=== PATIENT | female | born 1950 | race Caucasian/White ===

== ENCOUNTER 2017-10-24 13:37 | Inpatient (IN) | payer MEDICARE, MEDICAID, SELFPAY ==
[2017-10-24] VITALS (13 sets, daily range): BP systolic 92–133; BP diastolic 56–106; PULSE 40–121; RESP 16–20; TEMP 36.3–37.1; O2SAT 94–98; BMI 29.6; BMI 26.6
--- NOTE | 2017-10-24 13:53 | EKG12_ITS ---
Test Reason : CP Blood Pressure : / mmHG Vent. Rate : 116 BPM Atrial Rate : 117 BPM P-R Int : 000 ms QRS Dur : 114 ms QT Int : 348 ms P-R-T Axes : 000 -02 182 degrees QTc Int : 483 ms Atrial fibrillation Marked ST abnormality, possible inferolateral subendocardial injury Abnormal ECG Reconfirmed by CYNTHIA HARPER, ANABELA ([id number]), film editor KEYLA SANTAMARIA ([id number]) on 10/27/2017 1:50:54 PM Referred By: Confirmed By:ANABELA MARIE MD
--- NOTE | 2017-10-24 14:05 | RAD_ITS ---
STUDY: X-RAY CHEST REASON FOR EXAM: Female, 67 years old. Chest pain. TECHNIQUE: Single AP portable view of the chest. COMPARISON: None. FINDINGS: EKG electrodes are seen. The lungs are clear and expanded. There is no demonstrated pleural abnormality. There is moderate cardiac enlargement. Normal mediastinum and kenan. Normal visualized pulmonary arteries. There is atherosclerotic calcification of the aortic arch with tortuosity. There is demineralization of the osseous structures. Deformity of the proximal right humerus most likely secondary to a healed fracture. There is no demonstrated abnormality of the visualized soft tissue structures of the upper abdomen. RAD/Chest 1 View (Portable) IMPRESSION: Cardiomegaly. The lungs are clear. Electronically Signed: Fredi Diaz MD at 14:25 EDT Tel [phone], Service support ,
--- NOTE | 2017-10-24 14:19 | ED.VISSUMM ---
- ER Visit Summary Date of Service: 10/24/17 Chief Complaint: Brought to ER to evaluate chest pain History of Present Illness: The patient is a 67 F who has a history of heart problems and is cognitively impaired was brought to the emergency department because of chest pain that started at 1100. Reportedly there was radiation to both shoulders and shortness of breath. She did have nausea with vomiting ?1. She is not a good performance secondary to her cognitive impairment. Physical Examination: Vital signs reveal a slightly elevated blood pressure 133/106 and an elevated heart rate of 120. Head is atraumatic normocephalic. Pupils are equal round reactive. Extraocular muscles are intact. TMs are pearly white with landmarks noted. Nares patent with no drainage. Posterior pharynx without erythema or exudate. Uvula is midline. There is no dysphonia or dysphasia. Trachea is midline. There is no stridor with auscultation of the neck. Heart is irregularly irregular and rapid. Lungs reveal no wheezes rales or rhonchi. Abdomen is soft nontender with no palpable cell mass abdominal bruit. She does have mild edema of both right and left lower extremity. Distal pulses were appreciated. She is alert. There is no obvious motor or sensory deficit. Test Results: EKG was obtained and reveals atrial fibrillation rate of [address]-T wave changes. This may represent ischemia versus rate dependency versus chronic. Will attempt to get old EKG from outside facility and her teacher assistant Dr. Garrison was paged. CBC is unremarkable. BMP is unremarkable. Troponin is indeterminate at 0.14. Emergency Department Course and Treatment: To evaluate this elderly woman's chest pain EKG, chest x-ray appropriate blood work was obtained. Since she has allergy to aspirin she did not receive any aspirin in the department. Recent will receive metoprolol for her rapid heart rate. Treatment Plan: [place] with teacher assistant on-call for Dr. Garrison. Patient has a history of chronic diastolic congestive heart failure, hypertrophic obstructive cardiomyopathy with a gradient of 23 which is unremarkable., Mitral valve prolapse, essential hypertension and dementia. Her last stress test was 2015 and reportedly unremarkable. The cardiac echo was in 2014. Disposition: PCU for further evaluation and testing Impression: 1. Anterior chest pain 2. Elevated troponin 3. MRDD and dementia 4. History of hypertrophic obstructive cardiomyopathy 5. History of chronic diastolic congestive heart failure 6. History of benign essential hypertension 7. Atrial fibrillation with RVR This note was generated with [employer] dictation software. It may contain incorrect words, spelling, and punctuation that were not noted in review of the chart prior to signing ED Disposition - Plan for ED Patient: Chief Complaint: General Illness Referrals: [facility],Out of [Primary Care Provider] -
--- NOTE | 2017-10-24 14:22 | ED.DCSUM_ITS ---
- ER Visit Summary Date of Service: 10/24/17 Chief Complaint: Brought to ER to evaluate chest pain History of Present Illness: The patient is a 67 F who has a history of heart problems and is cognitively impaired was brought to the emergency department because of chest pain that started at 1100. Reportedly there was radiation to both shoulders and shortness of breath. She did have nausea with vomiting ?1. She is not a good performance secondary to her cognitive impairment. Physical Examination: Vital signs reveal a slightly elevated blood pressure 133/ 106 and an elevated heart rate of 120. Head is atraumatic normocephalic. Pupils are equal round reactive. Extraocular muscles are intact. TMs are pearly white with landmarks noted. Nares patent with no drainage. Posterior pharynx without erythema or exudate. Uvula is midline. There is no dysphonia or dysphasia. Trachea is midline. There is no stridor with auscultation of the neck. Heart is irregularly irregular and rapid. Lungs reveal no wheezes rales or rhonchi. Abdomen is soft nontender with no palpable cell mass abdominal bruit. She does have mild edema of both right and left lower extremity. Distal pulses were appreciated. She is alert. There is no obvious motor or sensory deficit. Test Results: EKG was obtained and reveals atrial fibrillation rate of [address]-T wave changes. This may represent ischemia versus rate dependency versus chronic. Will attempt to get old EKG from outside facility and her copper miner Dr. Garrison was paged. CBC is unremarkable. BMP is unremarkable. Troponin is indeterminate at 0.14. Emergency Department Course and Treatment: To evaluate this elderly woman's chest pain EKG, chest x-ray appropriate blood work was obtained. Since she has allergy to aspirin she did not receive any aspirin in the department. Recent will receive metoprolol for her rapid heart rate. Treatment Plan: [place] with copper miner on-call for Dr. Garrison. Patient has a history of chronic diastolic congestive heart failure, hypertrophic obstructive cardiomyopathy with a gradient of 23 which is unremarkable., Mitral valve prolapse, essential hypertension and dementia. Her last stress test was 2015 and reportedly unremarkable. The cardiac echo was in 2014. Disposition: PCU for further evaluation and testing Impression: 1. Anterior chest pain 2. Elevated troponin 3. MRDD and dementia 4. History of hypertrophic obstructive cardiomyopathy 5. History of chronic diastolic congestive heart failure 6. History of benign essential hypertension 7. Atrial fibrillation with RVR This note was generated with [employer] dictation software. It may contain incorrect words, spelling, and punctuation that were not noted in review of the chart prior to signing ED Disposition - Plan for ED Patient: Chief Complaint: General Illness Referrals: [facility],Out of [Primary Care Provider] -
[2017-10-24 14:24] LABS: Absolute Lymphocyte Count 1.61 X10^3/ul (0.83-4.51); Absolute Neutrophil Count 6.4 X10^3/uL (2.0-7.7); Basophil# 0.04 X10^3/uL; Basophil% 0.5 % (0-1); Eosinophil# 0.04 X10^3/uL; Eosinophils% 0.5 % (0-5); Hematocrit 42.1 % (37-47); Lymphocyte # 1.61 X10^3/ul (4.0); Lymphocyte % 18.7 % (19-41); Mean Corp Hgb Conc 33.3 g/gl (32-36); Mean Corpuscular Volume 93.1 fL (81-99); Mean Platelet Vol. 9.3 fl (6.2-12.0); Monocyte# 0.52 X10^3/uL; Neutrophil # 6.39 X10^3/uL (2.7-7.7); Neutrophil % 74.2 % (47-70); Platelet Count 275 K/mm3 (150-450); RBC Distribution Width CV 12.5 % (11.6-14.6); RBC Distribution Width SD 42.4 fl (35.1-43.9); Red Blood Count 4.52 M/mm3 (4.2-5.4); White Blood Count 8.6 K/mm3 (4.4-11.0)
[2017-10-24 14:25] LABS: POSITIVE COUNT NO; POSITIVE DIFFERENTIAL NO; POSITIVE MORPHOLOGY NO
[2017-10-24 14:40] LABS: Anion Gap 10 (5-15); BUN 30 mg/dL (7-18); BUN/Creat Ratio 30.9 RATIO (10-20); Calcium,Total 9.4 mg/dL (8.5-10.1); Chloride 106 mmol/L (98-107); Creatinine, Serum 0.97 mg/dL (0.55-1.02); EST Glomerular Filtration Rate 60 mL/min (>60); Est Glom Filt Rate - Afr Amer 73 mL/min (>60); Estimated Creatinine Clearance 55.56 ml/min; Glucose 115 mg/dL (74-106); Potassium 4.6 mmol/L (3.5-5.1); Sodium Level 140 mmol/L (136-145)
[2017-10-24] MEDS: Metoprolol Tartrate 5 MG/5 ML Vial IV (15:30)
--- NOTE | 2017-10-24 16:39 | PCM.HP.STD ---
Problem List (1) Chest pain Status: Acute (2) Afib Status: Acute (3) HOCM (hypertrophic obstructive cardiomyopathy) Status: Chronic (4) Heart failure with preserved ejection fraction Status: Chronic (5) MVP (mitral valve prolapse) Status: Chronic (6) HTN (hypertension) Status: Chronic Qualifiers: Hypertension type: essential hypertension Qualified Code(s): I10 - Essential (primary) hypertension (7) Dementia in Alzheimer's disease Status: Chronic (8) Hypersomnolence Status: Acute History of Present Illness Date of Admission: 10/24/17 Chief Complaint: chest pain. vomiting. The patient is a 67 year old F who states that she has not been feeling well for days with nausea and today had vomiting. Patient also complaining of chest pain which she states is been for days. The patient's caregiver to whom she lives with, has been in the room and states that a lot of these symptoms patient is complaining about were unknown to her but patient is not most reliable historian, according to the caregiver. Patient went to an urgent care and had an irregular heartbeat and advised to go to the hospital. Normally the patient's care is in [facility] but they did advise patient go to the nearest emergency room which was [place]. So here patient was noted to be in atrial fibrillation on EKG did receive 1 dose of metoprolol. Did have a troponin that was 0.14. Patient is being admitted for further chest pain evaluation well as atrial fibrillation. Patient's caregiver, has a daughter who is a nurse, and the daughter has told the caregiver that the patient has had intermittent atrial fibrillation. Review of records from the patient's claim adjuster, Dr. Dain Garrison, has no mention of atrial fibrillation on it. Patient's last visit was from August 03, 2017. [] Past Medical History Past Medical History (Chronic Problems): Chronic Problems HOCM (hypertrophic obstructive cardiomyopathy) (Chronic) Heart failure with preserved ejection fraction (Chronic) MVP (mitral valve prolapse) (Chronic) HTN (hypertension) (Chronic) Dementia in Alzheimer's disease (Chronic) Allergies aspirin Allergy (Verified 10/24/17 13:43) Rash ibuprofen Adverse Reaction (Verified 10/24/17 13:43) Other STOMACH BLEEDING Home Medications: Ambulatory Orders Medication Instructions Recorded Acetaminophen [Tylenol] 325 mg PO Q4H PRN PRN 10/24/17 Alendronate Sodium [Fosamax] 70 mg PO Q7D@0700 10/24/17 Cholecalciferol (Vitamin D3) 1,000 unit PO DAILY 10/24/17 [Vitamin D3] Cholestyramine/Aspartame 4 gm PO DAILY 10/24/17 [Cholestyramine Light Packet] Donepezil HCl [Aricept] 5 mg PO QHS 10/24/17 Lovastatin [Altoprev] 20 mg PO QHS 10/24/17 Metoprolol Succinate [Toprol Xl] 50 mg PO BID 10/24/17 Ondansetron HCl [Zofran] 4 mg PO Q8H PRN PRN 10/24/17 Spironolactone 25 mg PO DAILY 10/24/17 Verapamil HCl [Verapamil ER] 240 mg PO DAILY 10/24/17 Psychiatric History: No pertinent psych hx Lives: Friends Smoking Status: Former smoker Tobacco Use: Non-smoker Alcohol: None Drugs: None - *Family History Maternal History Items: - - Patient unaware and caregiver does not know. Review of Systems Constitutional: Denies: Anorexia, Chills, Fever Eyes: Denies: Blurred vision, Double vision HEENT: Denies: Difficulty Hearing, Dysphasia, Ear Pain, Eye Pain Cardiovascular: Reports: Chest Pain, Edema Respiratory: Reports: Shortness of Breath. Denies: Cough Gastrointestinal: Reports: Nausea, Vomiting. Denies: Abdominal Pain Genitourinary: Denies: Dysuria Musculoskeletal: Denies: Joint Pain, Joint Tenderness Skin: Denies: Dryness, Jaundice Neurological: Denies: Balance problems, Blurred vision, Double vision, Change in Speech Psychiatric: Denies: Anxiety, Depression Endocrine: Reports: Change in Body Habitus - Has gained roughly 25 pounds in the past year. Denies: Heat/ Cold Intolerance Hematologic/ Lymphatic: Denies: Easy Bruising, Easy Bleeding, Hx of blood clot VTE Information - Inpt Only VTE Present on Admission: No VTE Pharm Prophylaxis ordered?: Yes Patient Problems: Active and Suspected Problems Chest pain (Acute) Afib (Acute) Hypersomnolence (Acute) - Physical Exam General: Alert, Cooperative, No apparent distress HEENT: Atraumatic, Normocephalic Oral: Moist Mucosa, No Gingival or Mucosal Lesions/ Ulcerations Neck: No Nodes, Thyroid Normal Size and Texture Lungs: Clear to auscultation, Normal air movement, No rhonchi, No wheeze Cardiovascular: Normal S1, Normal S2, Irregular Rate Abdomen: Bowel Sounds Present, Soft, Non Tender, Non-Distended, No Hepato-splenomegaly Extremities: Edema - Trace Skin: No rashes, No breakdown Musculoskeletal: No Tenderness to Palpation of Joints or Extremities, No Muscle Wasting Neurological: Neuro grossly intact, Motor Exam 5/5 strength throughout Psych/Mental Status: Normal Affect, Appropriate, Agitated, Anxious Vital Signs Temp Pulse Resp BP Pulse Ox 36.4 C L 102 H 17 127/90 H 95 10/24/17 13:39 10/24/17 15:41 10/24/17 15:41 10/24/17 15:41 10/24/17 15:41 Oxygen Delivery Method Room Air Weight: 64.3 kg Body Mass Index (BMI) 29.6 Laboratory Tests Past 24 Hrs 10/24/17 10/24/17 14:15 14:15 WBC 8.6 RBC 4.52 Hgb 14.0 Hct 42.1 MCV 93.1 MCH 31.0 MCHC 33.3 RDW 12.5 RDW Differential 42.4 Plt Count 275 MPV 9.3 Immature Gran % (Auto) 0.100 Neut % (Auto) 74.2 H Lymph % (Auto) 18.7 L [place] % (Auto) 6.0 Eos % (Auto) 0.5 Baso % (Auto) 0.5 Absolute Neuts (auto) 6.4 Absolute Lymphs (auto) 1.61 Total Counted Not Reportable Sodium 140 Potassium 4.6 Chloride 106 Carbon Dioxide 24.0 Anion Gap 10 BUN 30 H Creatinine 0.97 Estim Creat Clear Calc 55.56 Est GFR (MDRD) Af Amer 73 Est GFR (MDRD) Non-Af 60 BUN/Creatinine Ratio 30.9 H Glucose 115 H Calcium 9.4 Troponin I 0.14 H EKG reviewed and showed atrial fibrillation. Previous EKGs from March 29, 2016 showed normal sinus rhythm at that time. Did show diffuse ST depressions throughout. Assessment/Plan Active and Suspected Problems Chest pain (Acute) Afib (Acute) Hypersomnolence (Acute) 1. Chest pain Atypical Cycle troponins Check Lexiscan stress test Consult cardiology, Dr. Mas notified. 2. Atrial fibrillation May be a new diagnosis but is unclear but nothing formally documented in Dr. Garrison's notes. [id number] score is 4 Will start patient on Lovenox And based on patient's echocardiogram patient will either go with the novel anticoagulants versus Coumadin. Patient has no bleeding problems and despite the patient's underlying mental impairments she is not a fall risk and has a good performance status 3. Hypertrophic obstructive cardiomyopathy Check echocardiogram Follow-up with Dr. Garrison as outpatient. 4. DVT prophylaxis: Patient is anticoagulated 5. CODE STATUS: Despite the patient living with a caregiver, the caregiver is not the guardian and therefore no formal CODE STATUS is readily available. Therefore patient has full CODE STATUS at this time. Code Visit Inpatient E&M: 98299 Init Hosp L3
--- NOTE | 2017-10-24 16:50 | HP.PCM_ITS ---
Problem List (1) Chest pain Status: Acute (2) Afib Status: Acute (3) HOCM (hypertrophic obstructive cardiomyopathy) Status: Chronic (4) Heart failure with preserved ejection fraction Status: Chronic (5) MVP (mitral valve prolapse) Status: Chronic (6) HTN (hypertension) Status: Chronic Qualifiers: Hypertension type: essential hypertension Qualified Code(s): I10 - Essential (primary) hypertension (7) Dementia in Alzheimer's disease Status: Chronic (8) Hypersomnolence Status: Acute History of Present Illness Date of Admission: 10/24/17 Chief Complaint: chest pain. vomiting. The patient is a 67 year old F who states that she has not been feeling well for days with nausea and today had vomiting. Patient also complaining of chest pain which she states is been for days. The patient's caregiver to whom she lives with, has been in the room and states that a lot of these symptoms patient is complaining about were unknown to her but patient is not most reliable historian, according to the caregiver. Patient went to an urgent care and had an irregular heartbeat and advised to go to the hospital. Normally the patient's care is in [facility] but they did advise patient go to the nearest emergency room which was [place]. So here patient was noted to be in atrial fibrillation on EKG did receive 1 dose of metoprolol. Did have a troponin that was 0.14. Patient is being admitted for further chest pain evaluation well as atrial fibrillation. Patient's caregiver, has a daughter who is a nurse, and the daughter has told the caregiver that the patient has had intermittent atrial fibrillation. Review of records from the patient's agriculture department chair, Dr. Dain Garrison, has no mention of atrial fibrillation on it. Patient's last visit was from August 03, 2017. [] Past Medical History Past Medical History (Chronic Problems): Chronic Problems HOCM (hypertrophic obstructive cardiomyopathy) (Chronic) Heart failure with preserved ejection fraction (Chronic) MVP (mitral valve prolapse) (Chronic) HTN (hypertension) (Chronic) Dementia in Alzheimer's disease (Chronic) Allergies aspirin Allergy (Verified 10/24/17 13:43) Rash ibuprofen Adverse Reaction (Verified 10/24/17 13:43) Other STOMACH BLEEDING Home Medications: Ambulatory Orders Medication Instructions Recorded Acetaminophen [Tylenol] 325 mg PO Q4H PRN PRN 10/24/17 Alendronate Sodium [Fosamax] 70 mg PO Q7D@0700 10/24/17 Cholecalciferol (Vitamin D3) 1,000 unit PO DAILY 10/24/17 [Vitamin D3] Cholestyramine/Aspartame 4 gm PO DAILY 10/24/17 [Cholestyramine Light Packet] Donepezil HCl [Aricept] 5 mg PO QHS 10/24/17 Lovastatin [Altoprev] 20 mg PO QHS 10/24/17 Metoprolol Succinate [Toprol Xl] 50 mg PO BID 10/24/17 Ondansetron HCl [Zofran] 4 mg PO Q8H PRN PRN 10/24/17 Spironolactone 25 mg PO DAILY 10/24/17 Verapamil HCl [Verapamil ER] 240 mg PO DAILY 10/24/17 Psychiatric History: No pertinent psych hx Lives: Friends Smoking Status: Former smoker Tobacco Use: Non-smoker Alcohol: None Drugs: None - *Family History Maternal History Items: - - Patient unaware and caregiver does not know. Review of Systems Constitutional: Denies: Anorexia, Chills, Fever Eyes: Denies: Blurred vision, Double vision HEENT: Denies: Difficulty Hearing, Dysphasia, Ear Pain, Eye Pain Cardiovascular: Reports: Chest Pain, Edema Respiratory: Reports: Shortness of Breath. Denies: Cough Gastrointestinal: Reports: Nausea, Vomiting. Denies: Abdominal Pain Genitourinary: Denies: Dysuria Musculoskeletal: Denies: Joint Pain, Joint Tenderness Skin: Denies: Dryness, Jaundice Neurological: Denies: Balance problems, Blurred vision, Double vision, Change in Speech Psychiatric: Denies: Anxiety, Depression Endocrine: Reports: Change in Body Habitus - Has gained roughly 25 pounds in the past year. Denies: Heat/ Cold Intolerance Hematologic/ Lymphatic: Denies: Easy Bruising, Easy Bleeding, Hx of blood clot VTE Information - Inpt Only VTE Present on Admission: No VTE Pharm Prophylaxis ordered?: Yes Patient Problems: Active and Suspected Problems Chest pain (Acute) Afib (Acute) Hypersomnolence (Acute) - Physical Exam General: Alert, Cooperative, No apparent distress HEENT: Atraumatic, Normocephalic Oral: Moist Mucosa, No Gingival or Mucosal Lesions/ Ulcerations Neck: No Nodes, Thyroid Normal Size and Texture Lungs: Clear to auscultation, Normal air movement, No rhonchi, No wheeze Cardiovascular: Normal S1, Normal S2, Irregular Rate Abdomen: Bowel Sounds Present, Soft, Non Tender, Non-Distended, No Hepato- splenomegaly Extremities: Edema - Trace Skin: No rashes, No breakdown Musculoskeletal: No Tenderness to Palpation of Joints or Extremities, No Muscle Wasting Neurological: Neuro grossly intact, Motor Exam 5/5 strength throughout Psych/Mental Status: Normal Affect, Appropriate, Agitated, Anxious Vital Signs Temp Pulse Resp BP Pulse Ox 36.4 C L 102 H 17 127/90 H 95 10/24/17 13:39 10/24/17 15:41 10/24/17 15:41 10/24/17 15:41 10/24/17 15:41 Oxygen Delivery Method Room Air Weight: 64.3 kg Body Mass Index (BMI) 29.6 Laboratory Tests Past 24 Hrs 10/24/17 10/24/17 14:15 14:15 WBC 8.6 RBC 4.52 Hgb 14.0 Hct 42.1 MCV 93.1 MCH 31.0 MCHC 33.3 RDW 12.5 RDW Differential 42.4 Plt Count 275 MPV 9.3 Immature Gran % (Auto) 0.100 Neut % (Auto) 74.2 H Lymph % (Auto) 18.7 L [place] % (Auto) 6.0 Eos % (Auto) 0.5 Baso % (Auto) 0.5 Absolute Neuts (auto) 6.4 Absolute Lymphs (auto) 1.61 Total Counted Not Reportable Sodium 140 Potassium 4.6 Chloride 106 Carbon Dioxide 24.0 Anion Gap 10 BUN 30 H Creatinine 0.97 Estim Creat Clear Calc 55.56 Est GFR (MDRD) Af Amer 73 Est GFR (MDRD) Non-Af 60 BUN/Creatinine Ratio 30.9 H Glucose 115 H Calcium 9.4 Troponin I 0.14 H EKG reviewed and showed atrial fibrillation. Previous EKGs from March 29, 2016 showed normal sinus rhythm at that time. Did show diffuse ST depressions throughout. Assessment/Plan Active and Suspected Problems Chest pain (Acute) Afib (Acute) Hypersomnolence (Acute) 1. Chest pain * Atypical * Cycle troponins * Check Lexiscan stress test * Consult cardiology, Dr. Mas notified. 2. Atrial fibrillation * May be a new diagnosis but is unclear but nothing formally documented in Dr. Garrison's notes. * [id number] score is 4 * Will start patient on Lovenox * And based on patient's echocardiogram patient will either go with the novel anticoagulants versus Coumadin. * Patient has no bleeding problems and despite the patient's underlying mental impairments she is not a fall risk and has a good performance status 3. Hypertrophic obstructive cardiomyopathy * Check echocardiogram * Follow-up with Dr. Garrison as outpatient. 4. DVT prophylaxis: Patient is anticoagulated 5. CODE STATUS: Despite the patient living with a caregiver, the caregiver is not the guardian and therefore no formal CODE STATUS is readily available. Therefore patient has full CODE STATUS at this time. Code Visit Inpatient E&M: 06604 Init Hosp L3
[2017-10-24] MEDS: Enoxaparin 60 MG/0.6 ML Syringe SC (17:50)
[2017-10-24] MEDS: Acetaminophen 325 MG Tablet PO ×2 (17:50→22:08)
--- NOTE | 2017-10-24 18:01 | CON.PCM_ITS ---
Reason for Consult Date of Consultation: 10/24/17 Reason for Consultation: Abnormal cardiac enzymes and abnormal EKG. History of Present Illness: The patient is a 67 year old F who states that she has not been feeling well for days with nausea and today had vomiting. Patient also complaining of chest pain which she states is been for days. The patient's caregiver to whom she lives with, has been in the room and states that a lot of these symptoms patient is complaining about were unknown to her but patient is not most reliable historian, according to the caregiver. Patient went to an urgent care and had an irregular heartbeat and advised to go to the hospital. So here patient was noted to be in atrial fibrillation on EKG did receive 1 dose of metoprolol. Cardiac enzymes were also obtained which were noted to be abnormal. Her major complaint at this time appears to be a headache but denies any chest discomfort she has had no dizziness or diaphoresis no near syncope or syncope she thinks her feet and legs have been swollen. She usually follows with a welding lead burner Dr. Garrison. She apparently has a history of hypertrophic cardiomyopathy with mitral valve prolapse. Past Medical History Allergies/Adverse Reactions: Allergies aspirin Allergy (Verified 10/24/17 13:43) Rash ibuprofen Adverse Reaction (Verified 10/24/17 13:43) Other STOMACH BLEEDING Home Medications: Ambulatory Orders Medication Instructions Recorded Acetaminophen [Tylenol] 325 mg PO Q4H PRN PRN 10/24/17 Alendronate Sodium [Fosamax] 70 mg PO Q7D@0700 10/24/17 Cholecalciferol (Vitamin D3) 1,000 unit PO DAILY 10/24/17 [Vitamin D3] Cholestyramine/Aspartame 4 gm PO DAILY 10/24/17 [Cholestyramine Light Packet] Donepezil HCl [Aricept] 5 mg PO QHS 10/24/17 Lovastatin [Altoprev] 20 mg PO QHS 10/24/17 Metoprolol Succinate [Toprol Xl] 50 mg PO BID 10/24/17 Ondansetron HCl [Zofran] 4 mg PO Q8H PRN PRN 10/24/17 Spironolactone 25 mg PO DAILY 10/24/17 Verapamil HCl [Verapamil ER] 240 mg PO DAILY 10/24/17 Past Medical History (Chronic Problems): Chronic Problems HOCM (hypertrophic obstructive cardiomyopathy) (Chronic) Heart failure with preserved ejection fraction (Chronic) MVP (mitral valve prolapse) (Chronic) HTN (hypertension) (Chronic) Dementia in Alzheimer's disease (Chronic) Psychiatric History: No pertinent psych hx - *Family History Maternal History Items: - - Patient unaware and caregiver does not know. Lives: Friends Smoking Status: Former smoker Tobacco Use: Non-smoker Alcohol: None Drugs: None Review of Systems - Review of Systems General: Denies: Fever, Night Sweats, Fatigue Cardiovascular: Reports: Chest Discomfort, Palpitations. Denies: Shortness of Breath, Orthopnea, PND, Peripheral Edema, Lightheadedness, Dizziness, Near Syncope, Syncope Respiratory: Denies: Cough, Sputum Production, Hemoptysis Gastrointestinal: Denies: Hematemesis, Hematochezia, Melena Genitourinary: Denies: Dysuria, Hematuria Skin: Denies: Rash Subjectve: Pleasant lady in no apparent distress Objective: Vital Signs Temp Pulse Resp BP Pulse Ox 97.4 F L 99 18 97/56 L 94 10/24/17 17:13 10/24/17 17:13 10/24/17 17:13 10/24/17 17:13 10/24/17 17:13 Oxygen Delivery Method Room Air Weight: 140 lb 10.479 oz Body Mass Index (BMI) 26.6 Intake and Output for Last 24 Hours 10/22/17 10/23/17 10/24/17 23:59 23:59 23:59 Intake Total 240 / 240 Balance 240 / 240 General: Awake, Alert, Oriented x 3 HEENT: PERRL, EOMI, Sclera Non Icteric Neck: Supple, Good ROM, No Lymph Node Enlargement Lungs: Clear to auscultation Cardiovascular: Irregular Rhythm, Normal S1, Normal S2, No Rubs, No Gallops Murmur Murmur: Grade 2/6, Early Systolic, LLSB Vascular: No Carotid Bruits, Normal Femoral Pulses, Normal Radial Pulses, Normal Dorsalis Pedal Pulse, Normal Posterior Tibial Pulses Abdomen: Bowel Sounds Present, Soft, Non Tender, No HSM, No Organomegaly Extremities: No Cyanosis, No Clubbing, No edema Skin: No Rashes Neurological: No Focal Motor or Sensory Deficit Rhythm: EKG: Atrial fibrillation with a rate of [address] depression noted Assessment/Plan 1. Atrial fibrillation with a rapid ventricular response rate. She apparently has a history of hypertrophic cardiomyopathy and now presents with atrial fibrillation and EKG changes. My recommendation at this time would be for her to resume her beta-kieran as well as her verapamil for rate control. She is at high risk for embolic phenomenon and needs to be put on an anticoagulation regimen. An echocardiogram should also be performed to reassess her left ventricular function as well as the atrial size. After she is stabilized she will be discharged to go back to her primary welding lead burner. 2. hypertrophic cardiomyopathy. She appears to have evidence of hypertrophic cardiomyopathy with EKG changes as well as with physical exam. I would recommend that we repeat echocardiogram to characterize the above and compared with any previous that she may have. Rate control is paramount and making sure that she does not decompensate. 3. Abnormal cardiac enzymes. . The above could be secondary to demand ischemia from the atrial fibrillation as well as her hypertrophic cardiomyopathy. I would recommend that we obtain a pharmacologic stress test in a.m. depending on her cardiac enzyme patent. Further recommendations will then be made. I have explained the above to her as best as I can and depending on the results further recommendations will be made. Thank you for allowing me to participate in the care of your patient. Please don't hesitate to call if any issues arise
[2017-10-24] MEDS: Metoprolol(XL)Succ 50 MG Tablet PO (18:05)
[2017-10-24] MEDS: Atorvastatin Calcium 10 MG Tablet 5 MG PO (21:03)
[2017-10-24] MEDS: Donepezil HCl 5 MG Tablet PO (21:03)
--- NOTE | 2017-10-24 21:49 | EKG12_ITS ---
Test Reason : RHYTHM CHECK Blood Pressure : / mmHG Vent. Rate : 056 BPM Atrial Rate : 202 BPM P-R Int : 000 ms QRS Dur : 118 ms QT Int : 462 ms P-R-T Axes : 000 012 189 degrees QTc Int : 445 ms Atrial fibrillation Left ventricular hypertrophy with QRS widening Marked ST abnormality, possible inferior subendocardial injury Marked ST abnormality, possible anterolateral subendocardial injury Abnormal ECG Confirmed by CYNTHIA HARPER, ANABELA ([id number]), purchasing expeditor KEYLA SANTAMARIA ([id number] on 10/27/2017 2:04:42 PM Referred By: NU Confirmed By:ANABELA MARIE MD
[2017-10-24] MEDS: Ondansetron ODT 4 MG Tablet PO (22:15)
[2017-10-25] VITALS (22 sets, daily range): BP systolic 92–140; BP diastolic 40–117; PULSE 64–142; RESP 12–20; TEMP 36.2–36.9; O2SAT 92–99
[2017-10-25 05:28] LABS: Absolute Lymphocyte Count 1.81 X10^3/ul (0.83-4.51); Absolute Neutrophil Count 3.9 X10^3/uL (2.0-7.7); Basophil# 0.04 X10^3/uL; Basophil% 0.6 % (0-1); Eosinophil# 0.16 X10^3/uL; Eosinophils% 2.5 % (0-5); Hematocrit 39.7 % (37-47); Hemoglobin 13.1 g/dl (12.0-15.0); Lymphocyte # 1.81 X10^3/ul (4.0); Lymphocyte % 28.3 % (19-41); Mean Corpuscular Volume 93.9 fL (81-99); Mean Platelet Vol. 9.3 fl (6.2-12.0); Monocyte% 7.8 % (0-10); Neutrophil # 3.87 X10^3/uL (2.7-7.7); Neutrophil % 60.6 % (47-70); Platelet Count 225 K/mm3 (150-450); RBC Distribution Width CV 12.8 % (11.6-14.6); RBC Distribution Width SD 43.8 fl (35.1-43.9); Red Blood Count 4.23 M/mm3 (4.2-5.4); White Blood Count 6.4 K/mm3 (4.4-11.0)
[2017-10-25 05:29] LABS: POSITIVE COUNT NO; POSITIVE DIFFERENTIAL NO; POSITIVE MORPHOLOGY NO
[2017-10-25 05:32] LABS: Prothrombin Time (Protime)PT. 13.5 SECONDS (11.7-14.9)
[2017-10-25 05:33] LABS: Partial Thromboplast Time 39.1 Seconds (24.1-36.2)
[2017-10-25] MEDS: 0.9% NaCl Peripheral Flush Adult/Peds IV ×2 (05:44→11:04)
[2017-10-25] MEDS: Ondansetron 4 MG/2 ML Vial IV (05:44)
[2017-10-25 05:47] LABS: Anion Gap 8 (5-15); BUN 27 mg/dL (7-18); BUN/Creat Ratio 31.1 RATIO (10-20); Calcium,Total 8.5 mg/dL (8.5-10.1); Chloride 105 mmol/L (98-107); Cholesterol 150 mg/dL (200); Creatinine, Serum 0.87 mg/dL (0.55-1.02); EST Glomerular Filtration Rate 69 mL/min (>60); Est Glom Filt Rate - Afr Amer 83 mL/min (>60); Estimated Creatinine Clearance 46.05 ml/min; Glucose 93 mg/dL (74-106); High Density Lipoprotein 57 mg/dL; Potassium 4.2 mmol/L (3.5-5.1); Sodium Level 140 mmol/L (136-145); Triglycerides 101 mg/dL; Very Low Density Lipoprotein 20 mg/dL (5-40)
--- NOTE | 2017-10-25 05:55 | EKG12_ITS ---
Test Reason : AM EKG Blood Pressure : / mmHG Vent. Rate : 081 BPM Atrial Rate : 277 BPM P-R Int : 000 ms QRS Dur : 114 ms QT Int : 420 ms P-R-T Axes : 000 012 206 degrees QTc Int : 487 ms Atrial fibrillation Septal infarct , age undetermined Marked ST abnormality, possible inferior subendocardial injury Abnormal ECG Confirmed by CYNTHIA HARPER, ANABELA ([id number]), managing editor KEYLA SANTAMARIA ([id number]) on 10/27/2017 2:04:13 PM Referred By: NU Confirmed By:ANABELA MARIE MD
--- NOTE | 2017-10-25 09:31 | PCM.PN.CARD ---
Subjectve: The patient was seen and evaluated. Was having chest discomfort nausea and vomiting during the stress test as well as EKG changes with bradycardia arrhythmias. Based on this it was decided to proceed with a left heart catheterization Objective: Vital Signs Temp Pulse Resp BP Pulse Ox 97.9 F 87 14 99/68 97 10/25/17 05:51 10/25/17 05:51 10/25/17 05:51 10/25/17 05:51 10/25/17 05:51 Oxygen Flow Rate (L/min) 2 Oxygen Delivery Method Room Air Weight: 140 lb 10.479 oz Body Mass Index (BMI) 26.6 Intake and Output for Last 24 Hours 10/23/17 10/24/17 10/25/17 23:59 23:59 23:59 Intake Total 420 / 420 Balance 420 / 420 General: Awake, Alert, Oriented x 3 HEENT: PERRL, EOMI, Sclera Non Icteric Neck: Supple, Good ROM, No Lymph Node Enlargement Lungs: Clear to auscultation Cardiovascular: Regular Rhythm, Normal S1, Normal S2, No Murmurs, No Rubs, No Gallops Vascular: No Carotid Bruits, Normal Femoral Pulses, Normal Radial Pulses, Normal Dorsalis Pedal Pulse, Normal Posterior Tibial Pulses Abdomen: Bowel Sounds Present, Soft, Non Tender, No HSM, No Organomegaly Extremities: No Cyanosis, No Clubbing, No edema Neurological: No Focal Motor or Sensory Deficit 10/24/17 17:35: Troponin I 0.16 H 10/24/17 20:32: Troponin I 0.19 H 10/25/17 05:10: Sodium 140, Potassium 4.2, Chloride 105, Carbon Dioxide 27.0, Anion Gap 8, BUN 27 H, Creatinine 0.87, Est GFR (MDRD) Af Amer 83, Est GFR (MDRD) Non-Af 69, BUN/Creatinine Ratio 31.1 H, Glucose 93, Calcium 8.5, Triglycerides 101, Cholesterol 150, LDL Cholesterol 73, VLDL Cholesterol 20, HDL Cholesterol 57 10/25/17 05:10: WBC 6.4, RBC 4.23, Hgb 13.1, Hct 39.7, MCV 93.9, MCH 31.0, MCHC 33.0, RDW 12.8, RDW Differential 43.8, Plt Count 225, MPV 9.3, Immature Gran % (Auto) 0.200, Neut % (Auto) 60.6, Lymph % (Auto) 28.3, [place] % (Auto) 7.8, Eos % (Auto) 2.5, Baso % (Auto) 0.6, Absolute Neuts (auto) 3.9, Total Counted Not Reportable 10/25/17 05:10: PT 13.5, INR 1.0, APTT 39.1 H Rhythm: EKG: ECHO: Stress Test: Cardiac Cath: PCI: CT Surgery: Holter monitor: EPS: PPM: CXR: Chest CT Scan: Medical Necessity - Tobacco Use Smoking Status: Former smoker Tobacco Use: Non-smoker Assessment/Plan 1. Atrial fibrillation with a rapid ventricular response rate. She apparently has a history of hypertrophic cardiomyopathy and now presents with atrial fibrillation and EKG changes. My recommendation at this time would be for her to resume her beta-kieran as well as her verapamil for rate control. She is at high risk for embolic phenomenon and needs to be put on an anticoagulation regimen. An echocardiogram should also be performed to reassess her left ventricular function as well as the atrial size. 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 2. hypertrophic cardiomyopathy. She appears to have evidence of hypertrophic cardiomyopathy with EKG changes as well as with physical exam. I would recommend that we repeat echocardiogram to characterize the above and compared with any previous that she may have. Rate control is paramount and making sure that she does not decompensate. 3. Abnormal cardiac enzymes. Due to her abnormal cardiac enzymes and EKG she underwent a cardiac catheterization this morning which demonstrated essentially normal coronary arteries with evidence of hypertrophic cardiomyopathy. The plan will be to treat her with rate limiting medications. Thank you for allowing me to participate in the care of your patient. Please don't hesitate to call if any issues arise
--- NOTE | 2017-10-25 09:34 | PN.CARD_ITS ---
Subjectve: The patient was seen and evaluated. Was having chest discomfort nausea and vomiting during the stress test as well as EKG changes with bradycardia arrhythmias. Based on this it was decided to proceed with a left heart catheterization Objective: Vital Signs Temp Pulse Resp BP Pulse Ox 97.9 F 87 14 99/68 97 10/25/17 05:51 10/25/17 05:51 10/25/17 05:51 10/25/17 05:51 10/25/17 05:51 Oxygen Flow Rate (L/min) 2 Oxygen Delivery Method Room Air Weight: 140 lb 10.479 oz Body Mass Index (BMI) 26.6 Intake and Output for Last 24 Hours 10/23/17 10/24/17 10/25/17 23:59 23:59 23:59 Intake Total 420 / 420 Balance 420 / 420 General: Awake, Alert, Oriented x 3 HEENT: PERRL, EOMI, Sclera Non Icteric Neck: Supple, Good ROM, No Lymph Node Enlargement Lungs: Clear to auscultation Cardiovascular: Regular Rhythm, Normal S1, Normal S2, No Murmurs, No Rubs, No Gallops Vascular: No Carotid Bruits, Normal Femoral Pulses, Normal Radial Pulses, Normal Dorsalis Pedal Pulse, Normal Posterior Tibial Pulses Abdomen: Bowel Sounds Present, Soft, Non Tender, No HSM, No Organomegaly Extremities: No Cyanosis, No Clubbing, No edema Neurological: No Focal Motor or Sensory Deficit 10/24/17 17:35: Troponin I 0.16 H 10/24/17 20:32: Troponin I 0.19 H 10/25/17 05:10: Sodium 140, Potassium 4.2, Chloride 105, Carbon Dioxide 27.0, Anion Gap 8, BUN 27 H, Creatinine 0.87, Est GFR (MDRD) Af Amer 83, Est GFR (MDRD ) Non-Af 69, BUN/Creatinine Ratio 31.1 H, Glucose 93, Calcium 8.5, Triglycerides 101, Cholesterol 150, LDL Cholesterol 73, VLDL Cholesterol 20, HDL Cholesterol 57 10/25/17 05:10: WBC 6.4, RBC 4.23, Hgb 13.1, Hct 39.7, MCV 93.9, MCH 31.0, MCHC 33.0, RDW 12.8, RDW Differential 43.8, Plt Count 225, MPV 9.3, Immature Gran % ( Auto) 0.200, Neut % (Auto) 60.6, Lymph % (Auto) 28.3, [place] % (Auto) 7.8, Eos % ( Auto) 2.5, Baso % (Auto) 0.6, Absolute Neuts (auto) 3.9, Total Counted Not Reportable 10/25/17 05:10: PT 13.5, INR 1.0, APTT 39.1 H Rhythm: EKG: ECHO: Stress Test: Cardiac Cath: PCI: CT Surgery: Holter monitor: EPS: PPM: CXR: Chest CT Scan: Medical Necessity - Tobacco Use Smoking Status: Former smoker Tobacco Use: Non-smoker Assessment/Plan 1. Atrial fibrillation with a rapid ventricular response rate. She apparently has a history of hypertrophic cardiomyopathy and now presents with atrial fibrillation and EKG changes. My recommendation at this time would be for her to resume her beta-kieran as well as her verapamil for rate control. She is at high risk for embolic phenomenon and needs to be put on an anticoagulation regimen. An echocardiogram should also be performed to reassess her left ventricular function as well as the atrial size. 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 2. hypertrophic cardiomyopathy. She appears to have evidence of hypertrophic cardiomyopathy with EKG changes as well as with physical exam. I would recommend that we repeat echocardiogram to characterize the above and compared with any previous that she may have. Rate control is paramount and making sure that she does not decompensate. 3. Abnormal cardiac enzymes. Due to her abnormal cardiac enzymes and EKG she underwent a cardiac catheterization this morning which demonstrated essentially normal coronary arteries with evidence of hypertrophic cardiomyopathy. The plan will be to treat her with rate limiting medications. Thank you for allowing me to participate in the care of your patient. Please don't hesitate to call if any issues arise
--- NOTE | 2017-10-25 10:39 | CT_ITS ---
STUDY: CT BRAIN WITHOUT CONTRAST REASON FOR EXAM: Female, 67 years old. Headaches following heart catheterization. RADIATION DOSAGE (If Supplied By Facility): CTDIvol = ( 44.99 ) mGy, DLP = ( 796.11 ) mGycm TECHNIQUE: Transaxial CT imaging of the brain was performed without administration of intravenous contrast material. Individualized dose optimization techniques were used for this CT. COMPARISON: None. FINDINGS: Normal soft tissue structures. Normal calvarium. Normal size ventricles and extra-axial spaces for the patient's age. Normal white matter tracts of the cerebral hemispheres. Normal basal ganglia and thalami. Normal brainstem. Normal cerebellum. There is no intracranial hemorrhage. There are no findings of an acute ischemic infarction. Normal visualized paranasal sinuses. CT/Brain/Head without Contrast IMPRESSION: Normal unenhanced CT scan of the brain. Electronically Signed: Fredi Diaz MD at 11:31 EDT Tel [phone], Service support ,
--- NOTE | 2017-10-25 10:55 | CL.D_ITS ---
Patient Name: LELA CARBAJAL Study Date: 10/25/2017 Performing: Pio Mas MD Ht: 61 inches 155 cm : 1950 Wt: 141.3 lbs 64 kg Age: 67 Gender: female BSA: 1.63 PROCEDURE(S) PERFORMED [id number]/LV CLINICAL PROFILE AND INDICATIONS Indications: ACS <= 24 hrs Heart Failure: None Stress/Imaging Stress Test w/SPECT MPI: Yes Result: IndeterminantStress Test with SPECT MPI: Inde terminant Angina Classification Anginal Classification w/in 2 Weeks: CCS III CAD Presentations: Unstable angina. CONCLUSIONS Cardiomyopathy: Hypertrophic RECOMMENDATIONS Medical therapy DESCRIPTION OF PROCEDURE The patient arrived to the procedure lab. The risks and benefits of the procedure as well as a full d escription of our services here and current unavailability of surgical backup were fully explained to the patient and/or their significant other prior to the catheterization. The Timeout was completed, verifying the correct patient and procedure. The patient's procedural site was prepped and draped in the usual fashion. Local anesthetic was given subcutaneously to right groin region with Lidocaine 2%. Using a modified Seldinger technique, arterial access was obtained via the right femoral artery, a 5 Fr sheath was inserted. Left Coronary Artery selective angiography was performed in multiple views u sing a 5 Fr. JL4 catheter. Right Coronary Artery selective angiography was then performed in multiple views using a 5 Fr. 3DRC (Marin) catheter. Left Ventriculography was performed in VELAZQUEZ projection using a 5 Fr. Pigtail catheter. LV to AO pullback pressures were then recorded.Contrast was injected through the sheath and the Right Iliac and Femoral artery were assessed for possible closure device.T he arterial sheath was pulled and a Mynx closure device was deployed for hemostasis CORONARY ANGIOGRAPHY DOMINANCE: Right Dominant LEFT HEART ASSESSMENT Left Ventricular Ejection Fraction: by LV Gram 80 % Normal LV wall motion Cardiomyopathy: Hypertrophic LEFT MAIN: Angiographically normal LEFT ANTERIOR DECENDING ARTERY: Angiographically normal CIRCUMFLEX ARTERY: Angiographically normal RIGHT CORONARY ARTERY: Angiographically normal COMPLICATIONS No Complications PROCEDURE MEDICATIONS Versed 1 mg IV Fentanyl 25 mcg IV Oxygen: 2 L/min via nasal cannula Brilinta 180 mg PO @ 10/25/2017 08:53:45 Zofran 4 mg IV 10/25/2017 08:53:26 SUMMARY OF HEMODYNAMIC DATA Time AIR REST ECG 08:54:28 AO 107/76 (93) SA 09:08:38 LV 114/8, 16 09:16:15 LV 121/5, 11 09:16:22 LV 114/8, 17 09:17:21 LVp 143/10, 16 09:18:16 LVp 141/9, 14 09:18:21 LVp 98/0, 0 09:18:34 AOp 122/80 (95) 09:18:39 Signed By Pio Mas MD On 10/25/2017 10:54:34 Pio Mas MD
[2017-10-25] MEDS: proMETHazine 25 MG/ML Syringe 12.5 MG IV (11:04)
--- NOTE | 2017-10-25 11:46 | CASEMGMT ---
SW met with patient's caregiver, Rukhsana Pollard. Patient is MRDD and has a legal guardian, Agnes Carpenter. Agnes is Rukhsana's daughter. Patient was at one time and her took great care of her. However, he . They got patient and apartment to see if she could live on her own, but it did not work out so she moved in with Rukhsana. Patient goes to the [employer] for her work. They said she is pretty functional except Rukhsana does manage her meds, she does her laundry, and makes her meals. They anticipate returning home with no needs. CM and SW available should this change. SW did ask if they had the guardianship papers and they did not. Brittnee LAROSE MSW
[2017-10-25] MEDS: Metoprolol Tartrate 5 MG/5 ML Vial IV (12:16)
--- NOTE | 2017-10-25 13:02 | STRESSREP ---
Stress Test Report Pharmacologic myocardial perfusion stress test. 67-year-old lady with a history of hypertrophic cardiomyopathy abnormal EKG and abnormal cardiac enzymes. Stress protocol: Resting EKG demonstrates atrial fibrillation with a rate of 83 bpm lateral and inferior ST depression suggestive of ischemia. 0.4 mg of regadenoson was infused per usual protocol followed by rapid intravenous saline flush injection. Approximately 2 and three-quarter minutes post infusion patient developed significant bradycardia and a period of asystole requiring a brief episode of chest compressions. Patient was also noted to be rather nauseated. She maintained atrial fibrillation throughout the rest of the recording she continued to have ST depressions in the inferolateral leads of approximately 1.5-2.5 mm. She regained her blood pressure and heart rate and was monitored for approximately 30 minutes. The maximum heart rate was 129 bpm is 85% of maximum predicted heart rate for atrial fibrillation. No obvious clinical angina was noted. The resting blood pressure was 100/72 with a final blood pressure 102/64 mmHg. Myocardial perfusion protocol. 11.5 mCi of technetium 99m sestamibi was injected at rest. 0.4 mg of regadenoson was infused per usual protocol peak infusion 34.1 mCi of technetium 99m sestamibi was injected stress images were obtained stress and rest images were reconstructed and compared in the short axis vertical long and horizontal long axis. Gated images were also obtained pre- Perfusion SPECT analysis: Review of the stress images demonstrate normal uptake of tracer noted in all areas of the myocardium. The resting images similarly demonstrate normal uptake of tracer noted in all areas myocardium. A small portion of the apex appeared to have reduced perfusion. No obvious ischemia is noted and no previous infarct is present. Gated SPECT analysis: The gated ejection fraction is 66%. Conclusion: Normal pharmacologic myocardial perfusion stress test.
--- NOTE | 2017-10-25 13:08 | STRESSREP_ITS ---
Stress Test Report Pharmacologic myocardial perfusion stress test. 67-year-old lady with a history of hypertrophic cardiomyopathy abnormal EKG and abnormal cardiac enzymes. Stress protocol: Resting EKG demonstrates atrial fibrillation with a rate of 83 bpm lateral and inferior ST depression suggestive of ischemia. 0.4 mg of regadenoson was infused per usual protocol followed by rapid intravenous saline flush injection. Approximately 2 and three-quarter minutes post infusion patient developed significant bradycardia and a period of asystole requiring a brief episode of chest compressions. Patient was also noted to be rather nauseated. She maintained atrial fibrillation throughout the rest of the recording she continued to have ST depressions in the inferolateral leads of approximately 1.5 -2.5 mm. She regained her blood pressure and heart rate and was monitored for approximately 30 minutes. The maximum heart rate was 129 bpm is 85% of maximum predicted heart rate for atrial fibrillation. No obvious clinical angina was noted. The resting blood pressure was 100/72 with a final blood pressure 102/ 64 mmHg. Myocardial perfusion protocol. 11.5 mCi of technetium 99m sestamibi was injected at rest. 0.4 mg of regadenoson was infused per usual protocol peak infusion 34.1 mCi of technetium 99m sestamibi was injected stress images were obtained stress and rest images were reconstructed and compared in the short axis vertical long and horizontal long axis. Gated images were also obtained pre- Perfusion SPECT analysis: Review of the stress images demonstrate normal uptake of tracer noted in all areas of the myocardium. The resting images similarly demonstrate normal uptake of tracer noted in all areas myocardium. A small portion of the apex appeared to have reduced perfusion. No obvious ischemia is noted and no previous infarct is present. Gated SPECT analysis: The gated ejection fraction is 66%. Conclusion: Normal pharmacologic myocardial perfusion stress test.
--- NOTE | 2017-10-25 14:53 | PCM.PROGNOTE ---
Patient Problems: Active and Suspected Problems Chest pain (Acute) Afib (Acute) Hypersomnolence (Acute) Subjective: Pt without further chest pain after admission. She had mildly elevated troponin, a syncopal episode and EKG changes during the stress test, so she was taken for heart cath which was negative. She did however have severe headache and nausea after the cath. A CT of the brain was done which was negative, there was some concern about one spot on the CT however it was noted to be cath contrast per the radiologist. She was given IV phenergan, and is now in normal sinus rhythm with a significant improvement in her nausea. - Physical Exam General: Alert, Oriented x3, Cooperative HEENT: Atraumatic, PERRLA, EOMI, Normocephalic Neck: Supple, No JVD, Negative Carotid Bruits Lungs: Clear to auscultation, Normal air movement Cardiovascular: Regular rate, No murmurs Abdomen: Bowel Sounds Present, Soft, Non Tender Extremities: No edema, Capillary Refill Less than 3 Seconds Skin: No rashes, No breakdown Musculoskeletal: No Tenderness to Palpation of Joints or Extremities Neurological: Cranial nerves II-XII grossly intact Psych/Mental Status: Normal Affect, Appropriate, Alert and oriented to time, place, person, mood and affect Vital Signs Temp Pulse Resp BP Pulse Ox 98.2 F 124 H 12 111/72 93 10/25/17 12:45 10/25/17 12:45 10/25/17 12:45 10/25/17 12:45 10/25/17 12:45 Oxygen Flow Rate (L/min) 2 Oxygen Delivery Method Nasal Cannula Weight: 63.8 kg Body Mass Index (BMI) 26.6 Intake and Output for Last 24 Hours 10/23/17 10/24/17 10/25/17 23:59 23:59 23:59 Intake Total 420 / 420 140 / 140 Balance 420 / 420 140 / 140 Laboratory Tests Past 24 Hrs 10/24/17 10/24/17 10/25/17 17:35 20:32 05:10 WBC RBC Hgb Hct MCV MCH MCHC RDW RDW Differential Plt Count MPV Immature Gran % (Auto) Neut % (Auto) Lymph % (Auto) [place] % (Auto) Eos % (Auto) Baso % (Auto) Absolute Neuts (auto) Absolute Lymphs (auto) Total Counted PT INR APTT Sodium 140 Potassium 4.2 Chloride 105 Carbon Dioxide 27.0 Anion Gap 8 BUN 27 H Creatinine 0.87 Estim Creat Clear Calc 46.05 Est GFR (MDRD) Af Amer 83 Est GFR (MDRD) Non-Af 69 BUN/Creatinine Ratio 31.1 H Glucose 93 Calcium 8.5 Troponin I 0.16 H 0.19 H Triglycerides 101 Cholesterol 150 LDL Cholesterol 73 VLDL Cholesterol 20 HDL Cholesterol 57 10/25/17 10/25/17 05:10 05:10 WBC 6.4 RBC 4.23 Hgb 13.1 Hct 39.7 MCV 93.9 MCH 31.0 MCHC 33.0 RDW 12.8 RDW Differential 43.8 Plt Count 225 MPV 9.3 Immature Gran % (Auto) 0.200 Neut % (Auto) 60.6 Lymph % (Auto) 28.3 [place] % (Auto) 7.8 Eos % (Auto) 2.5 Baso % (Auto) 0.6 Absolute Neuts (auto) 3.9 Absolute Lymphs (auto) 1.81 Total Counted Not Reportable PT 13.5 INR 1.0 APTT 39.1 H Sodium Potassium Chloride Carbon Dioxide Anion Gap BUN Creatinine Estim Creat Clear Calc Est GFR (MDRD) Af Amer Est GFR (MDRD) Non-Af BUN/Creatinine Ratio Glucose Calcium Troponin I Triglycerides Cholesterol LDL Cholesterol VLDL Cholesterol HDL Cholesterol Medical Necessity - Tobacco Use Smoking Status: Former smoker Tobacco Use: Non-smoker Assessment/Plan Active and Suspected Problems Chest pain (Acute) Afib (Acute) Hypersomnolence (Acute) 1. Chest pain - negative cath this morning. Hx hypertrophic obstructive cardiomyopathy. Will need to follow up with her motel manager at Dr. Bladimir jackson. LDL 73. On lipitor, toprol, aldactone. CXR with cardiomegaly, otherwise clear. 2. AF with RVR - verapimil, toprol, currently NSR 3. Intractable nausea and headache - negative CT brain. Now improving with Phenergan. zofran did not help. Tylenol prn. She is also on fosamax and questran which can cause some stomach upset. Will hold while here. 4. Hx CHF - does not appear volume overloaded at this time 5. MRDD - lives in residential. POA currently not present. 6. Dementia - aricept, vitD supplement. DVT ppx: elilisais started DC planning: return to residential tomorrow if nausea and headache controlled. This patient was seen by Zuhair Anthony PA-C under the supervision of Doctor Rooney.
--- NOTE | 2017-10-25 15:03 | PN_ITS ---
Patient Problems: Active and Suspected Problems Chest pain (Acute) Afib (Acute) Hypersomnolence (Acute) Subjective: Pt without further chest pain after admission. She had mildly elevated troponin , a syncopal episode and EKG changes during the stress test, so she was taken for heart cath which was negative. She did however have severe headache and nausea after the cath. A CT of the brain was done which was negative, there was some concern about one spot on the CT however it was noted to be cath contrast per the radiologist. She was given IV phenergan, and is now in normal sinus rhythm with a significant improvement in her nausea. - Physical Exam General: Alert, Oriented x3, Cooperative HEENT: Atraumatic, PERRLA, EOMI, Normocephalic Neck: Supple, No JVD, Negative Carotid Bruits Lungs: Clear to auscultation, Normal air movement Cardiovascular: Regular rate, No murmurs Abdomen: Bowel Sounds Present, Soft, Non Tender Extremities: No edema, Capillary Refill Less than 3 Seconds Skin: No rashes, No breakdown Musculoskeletal: No Tenderness to Palpation of Joints or Extremities Neurological: Cranial nerves II-XII grossly intact Psych/Mental Status: Normal Affect, Appropriate, Alert and oriented to time, place, person, mood and affect Vital Signs Temp Pulse Resp BP Pulse Ox 98.2 F 124 H 12 111/72 93 10/25/17 12:45 10/25/17 12:45 10/25/17 12:45 10/25/17 12:45 10/25/17 12:45 Oxygen Flow Rate (L/min) 2 Oxygen Delivery Method Nasal Cannula Weight: 63.8 kg Body Mass Index (BMI) 26.6 Intake and Output for Last 24 Hours 10/23/17 10/24/17 10/25/17 23:59 23:59 23:59 Intake Total 420 / 420 140 / 140 Balance 420 / 420 140 / 140 Laboratory Tests Past 24 Hrs 10/24/17 10/24/17 10/25/17 17:35 20:32 05:10 WBC RBC Hgb Hct MCV MCH MCHC RDW RDW Differential Plt Count MPV Immature Gran % (Auto) Neut % (Auto) Lymph % (Auto) [place] % (Auto) Eos % (Auto) Baso % (Auto) Absolute Neuts (auto) Absolute Lymphs (auto) Total Counted PT INR APTT Sodium 140 Potassium 4.2 Chloride 105 Carbon Dioxide 27.0 Anion Gap 8 BUN 27 H Creatinine 0.87 Estim Creat Clear Calc 46.05 Est GFR (MDRD) Af Amer 83 Est GFR (MDRD) Non-Af 69 BUN/Creatinine Ratio 31.1 H Glucose 93 Calcium 8.5 Troponin I 0.16 H 0.19 H Triglycerides 101 Cholesterol 150 LDL Cholesterol 73 VLDL Cholesterol 20 HDL Cholesterol 57 10/25/17 10/25/17 05:10 05:10 WBC 6.4 RBC 4.23 Hgb 13.1 Hct 39.7 MCV 93.9 MCH 31.0 MCHC 33.0 RDW 12.8 RDW Differential 43.8 Plt Count 225 MPV 9.3 Immature Gran % (Auto) 0.200 Neut % (Auto) 60.6 Lymph % (Auto) 28.3 [place] % (Auto) 7.8 Eos % (Auto) 2.5 Baso % (Auto) 0.6 Absolute Neuts (auto) 3.9 Absolute Lymphs (auto) 1.81 Total Counted Not Reportable PT 13.5 INR 1.0 APTT 39.1 H Sodium Potassium Chloride Carbon Dioxide Anion Gap BUN Creatinine Estim Creat Clear Calc Est GFR (MDRD) Af Amer Est GFR (MDRD) Non-Af BUN/Creatinine Ratio Glucose Calcium Troponin I Triglycerides Cholesterol LDL Cholesterol VLDL Cholesterol HDL Cholesterol Medical Necessity - Tobacco Use Smoking Status: Former smoker Tobacco Use: Non-smoker Assessment/Plan Active and Suspected Problems Chest pain (Acute) Afib (Acute) Hypersomnolence (Acute) 1. Chest pain - negative cath this morning. Hx hypertrophic obstructive cardiomyopathy. Will need to follow up with her control room agent at Dr. Bladimir jackson. LDL 73. On lipitor, toprol, aldactone. CXR with cardiomegaly, otherwise clear. 2. AF with RVR - verapimil, toprol, currently NSR 3. Intractable nausea and headache - negative CT brain. Now improving with Phenergan. zofran did not help. Tylenol prn. She is also on fosamax and questran which can cause some stomach upset. Will hold while here. 4. Hx CHF - does not appear volume overloaded at this time 5. MRDD - lives in intermediate. POA currently not present. 6. Dementia - aricept, vitD supplement. DVT ppx: elilisais started DC planning: return to intermediate tomorrow if nausea and headache controlled. This patient was seen by Zuhair Anthony PA-C under the supervision of Doctor Rooney.
[2017-10-25] MEDS: proMETHazine 25 MG Tablet 12.5 MG PO (17:18)
[2017-10-25] MEDS: Acetaminophen 325 MG Tablet PO (17:19)
[2017-10-25] MEDS: Donepezil HCl 5 MG Tablet PO (21:47)
[2017-10-25] MEDS: Atorvastatin Calcium 10 MG Tablet 5 MG PO (21:47)
[2017-10-25] MEDS: Metoprolol(XL)Succ 50 MG Tablet PO (21:47)
[2017-10-26] VITALS (8 sets, daily range): BP systolic 99–122; BP diastolic 47–62; PULSE 51–73; RESP 16–20; TEMP 36.6–37.1; O2SAT 97–98
[2017-10-26] MEDS: proMETHazine 25 MG Tablet 12.5 MG PO (02:30)
--- NOTE | 2017-10-26 08:00 | PCM.PN.CARD ---
Subjectve: Patient seen and evaluated. Appears to be feeling much better. Objective: Vital Signs Temp Pulse Resp BP Pulse Ox 98.2 F 56 L 20 H 99/47 L 97 10/26/17 02:16 10/26/17 07:08 10/26/17 02:16 10/26/17 02:16 10/26/17 02:16 Oxygen Flow Rate (L/min) 2 Oxygen Delivery Method Nasal Cannula Weight: 140 lb 10.479 oz Body Mass Index (BMI) 26.6 Intake and Output for Last 24 Hours 10/24/17 10/25/17 10/26/17 23:59 23:59 23:59 Intake Total 420 / 420 1140 / 1140 60 / 60 Balance 420 / 420 1140 / 1140 60 / 60 General: Awake, Alert, Oriented x 3 HEENT: PERRL, EOMI, Sclera Non Icteric Neck: Supple, Good ROM, No Lymph Node Enlargement Lungs: Clear to auscultation Cardiovascular: Regular Rhythm, Normal S1, Normal S2, No Rubs, No Gallops Murmur Murmur: Grade 2/6, Early Systolic, LLSB Vascular: No Carotid Bruits, Normal Femoral Pulses, Normal Radial Pulses, Normal Dorsalis Pedal Pulse, Normal Posterior Tibial Pulses Abdomen: Bowel Sounds Present, Soft, Non Tender, No HSM, No Organomegaly Extremities: No Cyanosis, No Clubbing, No edema Neurological: No Focal Motor or Sensory Deficit Rhythm: EKG: ECHO: Stress Test: Cardiac Cath: PCI: CT Surgery: Holter monitor: EPS: PPM: CXR: Chest CT Scan: Medical Necessity - Tobacco Use Smoking Status: Former smoker Tobacco Use: Non-smoker Assessment/Plan 1. Atrial fibrillation with a rapid ventricular response rate. She apparently has a history of hypertrophic cardiomyopathy and now presents with atrial fibrillation and EKG changes. She was placed back on her beta-kieran as well as her calcium channel kieran and has converted back to sinus rhythm. She feels much better at this time. She will continue with anticoagulation and follow-up with her primary child caregiver. 2. hypertrophic cardiomyopathy. She appears to have evidence of hypertrophic cardiomyopathy with EKG changes as well as with physical exam. Her left ventriculogram demonstrated very hypertrophic cardiomyopathy with mid chamber obliteration. 3. Abnormal cardiac enzymes. Due to her abnormal cardiac enzymes and EKG she underwent a cardiac catheterization this morning which demonstrated essentially normal coronary arteries with evidence of hypertrophic cardiomyopathy. The plan will be to treat her with rate limiting medications. Thank you for allowing me to participate in the care of your patient. Please don't hesitate to call if any issues arise. Stable for discharge from my standpoint.
--- NOTE | 2017-10-26 08:03 | PN.CARD_ITS ---
Subjectve: Patient seen and evaluated. Appears to be feeling much better. Objective: Vital Signs Temp Pulse Resp BP Pulse Ox 98.2 F 56 L 20 H 99/47 L 97 10/26/17 02:16 10/26/17 07:08 10/26/17 02:16 10/26/17 02:16 10/26/17 02:16 Oxygen Flow Rate (L/min) 2 Oxygen Delivery Method Nasal Cannula Weight: 140 lb 10.479 oz Body Mass Index (BMI) 26.6 Intake and Output for Last 24 Hours 10/24/17 10/25/17 10/26/17 23:59 23:59 23:59 Intake Total 420 / 420 1140 / 1140 60 / 60 Balance 420 / 420 1140 / 1140 60 / 60 General: Awake, Alert, Oriented x 3 HEENT: PERRL, EOMI, Sclera Non Icteric Neck: Supple, Good ROM, No Lymph Node Enlargement Lungs: Clear to auscultation Cardiovascular: Regular Rhythm, Normal S1, Normal S2, No Rubs, No Gallops Murmur Murmur: Grade 2/6, Early Systolic, LLSB Vascular: No Carotid Bruits, Normal Femoral Pulses, Normal Radial Pulses, Normal Dorsalis Pedal Pulse, Normal Posterior Tibial Pulses Abdomen: Bowel Sounds Present, Soft, Non Tender, No HSM, No Organomegaly Extremities: No Cyanosis, No Clubbing, No edema Neurological: No Focal Motor or Sensory Deficit Rhythm: EKG: ECHO: Stress Test: Cardiac Cath: PCI: CT Surgery: Holter monitor: EPS: PPM: CXR: Chest CT Scan: Medical Necessity - Tobacco Use Smoking Status: Former smoker Tobacco Use: Non-smoker Assessment/Plan 1. Atrial fibrillation with a rapid ventricular response rate. She apparently has a history of hypertrophic cardiomyopathy and now presents with atrial fibrillation and EKG changes. She was placed back on her beta- kieran as well as her calcium channel kieran and has converted back to sinus rhythm. She feels much better at this time. She will continue with anticoagulation and follow-up with her primary journeyman pipe welder. 2. hypertrophic cardiomyopathy. She appears to have evidence of hypertrophic cardiomyopathy with EKG changes as well as with physical exam. Her left ventriculogram demonstrated very hypertrophic cardiomyopathy with mid chamber obliteration. 3. Abnormal cardiac enzymes. Due to her abnormal cardiac enzymes and EKG she underwent a cardiac catheterization this morning which demonstrated essentially normal coronary arteries with evidence of hypertrophic cardiomyopathy. The plan will be to treat her with rate limiting medications. Thank you for allowing me to participate in the care of your patient. Please don't hesitate to call if any issues arise. Stable for discharge from my standpoint.
[2017-10-26] MEDS: Verapamil SR 240 MG Tablet PO (09:57)
[2017-10-26] MEDS: APIXABAN 5 MG TABLET PO (09:57)
[2017-10-26] MEDS: Spironolactone 25 MG Tablet PO (09:57)
[2017-10-26] MEDS: Metoprolol(XL)Succ 50 MG Tablet PO (10:07)
--- NOTE | 2017-10-26 11:17 | DCINST_ITS ---
- Discharge Diagnoses Current Active Problems: Current Active and Chronic Problems Chest pain (Acute) Afib (Acute) HOCM (hypertrophic obstructive cardiomyopathy) (Chronic) Heart failure with preserved ejection fraction (Chronic) MVP (mitral valve prolapse) (Chronic) HTN (hypertension) (Chronic) Dementia in Alzheimer's disease (Chronic) Hypersomnolence (Acute) You will use the following diet at home:: Cardiac - <2 g sodium per day, low cholesterol Your food should be the consistency of: Regular Your liquids should be the consistency of: Regular/Thin Discharge Activity: Return to Normal Activity Instructions: ED Chest Pain NonCardiac Allergies/Adverse Reactions: Allergies aspirin Allergy (Verified 10/24/17 13:43) Rash ibuprofen Adverse Reaction (Verified 10/24/17 13:43) Other STOMACH BLEEDING Medications to take at Discharge Acetaminophen [Tylenol] 325 mg PO Q4H PRN PRN 10/24/17 Alendronate Sodium [Fosamax] 70 mg PO Q7D@0700 10/24/17 Cholecalciferol (Vitamin D3) [Vitamin D3] 1,000 unit PO DAILY 10/24/17 Cholestyramine/Aspartame [Cholestyramine Light Packet] 4 gm PO DAILY 10/24/17 Donepezil HCl [Aricept] 5 mg PO QHS 10/24/17 Lovastatin [Altoprev] 20 mg PO QHS 10/24/17 Metoprolol Succinate [Toprol Xl] 50 mg PO BID 10/24/17 Ondansetron HCl [Zofran] 4 mg PO Q8H PRN PRN 10/24/17 Spironolactone 25 mg PO DAILY 10/24/17 Verapamil HCl [Verapamil ER] 240 mg PO DAILY 10/24/17 Primary Care Physician: Roseline Wilkins,Out of [Primary Care Provider] - Please follow up with your Primary Care Physician in: 1-2 weeks Please Follow Up With: Cardiology - your own self sealing fuel tank repairer When: 1-2 weeks Proposed Discharge Date: 10/26/17
--- NOTE | 2017-10-26 11:27 | PCM.DC.SUM ---
Discharge Date and Diagnosis - Problem List Patient Problems: Active and Suspected Problems Chest pain (Acute) Afib (Acute) Hypersomnolence (Acute) Date of Admission: 10/24/17 Date of Discharge: 10/26/17 - Primary Discharge Diagnosis Active and Suspected Problems Chest pain (Acute) - musculoskeletal Afib (Acute) with RVR Dementia Dehydration Elevated troponin Hx CHF - Secondary Discharge Diagnosis Chronic Problems HOCM (hypertrophic obstructive cardiomyopathy) (Chronic) Heart failure with preserved ejection fraction (Chronic) MVP (mitral valve prolapse) (Chronic) HTN (hypertension) (Chronic) Dementia in Alzheimer's disease (Chronic) Hospital Course and Treatment Imaging Results: RAD/Chest 1 View (Portable) IMPRESSION: Cardiomegaly. The lungs are clear. CT/Brain/Head without Contrast IMPRESSION: Normal unenhanced CT scan of the brain. Left Heart cah - hypertrophic cardiomyopathy Cardiology - Dr. Mas Operations: None Procedures: Cardiac catheterization, Stress test Summary of Care Provided: Physical exam on day of discharge: General: Resting comfortably NAD Psych: A/Ox3 normal affect HEENT: PEARRLA AT NC Neck: Supple NT CV: RRR no m/t/r/g/h Resp: CTA Abd: [id number] Soft NT no guarding or rigidity Ext: DP2+= no edema Skin: W/D normal turgor Lymph/Heme: No active bleeding or adenopathy Neuro: CN2-12 intact Hospital course: The patient is a 67 year old F with a hx of hypertrophic cardiomyopathy, diastolic CHF, dementia, who [facility] with chest pain, nausea and vomiting. CXR was negative. CT brain was negative. She was found to have an indeterminate troponin and was taken for a stress test the following day. She had syncope and EKG changes during the stress test, so Dr. Mas took her for a left heart cath. This demonstrated no coronary disease, but confirmed prior hypertrophic cardiomyopathy. She also had AF with RVR for which she was given a dose of IV lopressor and had her verapimil and home toprol which put her back in NSR. Cardiology recommended she start eliquis for oral anticoagulation and this was ordered for her. She did not respond to zofran for nausea. Her headache and nausea resolved with tylenol and phenergan. She had no chest pain, nausea, or vomiting the next day and was discharged back to the prison in stable condition. We recommended she follow up with her oracle engineer in 1-2 weeks, and with her PCP. This patient was seen by Zuhair Anthony PA-C under the supervision of Doctor Rooney. Discharge Diet: Low fat/ Low Cholesterol, 2000 mg Sodium Diet Discharge Activity: Return to Normal Activity Home Medications: Medications to take at Discharge Acetaminophen [Tylenol] 325 mg PO Q4H PRN PRN 10/24/17 Alendronate Sodium [Fosamax] 70 mg PO Q7D@0700 10/24/17 Cholecalciferol (Vitamin D3) [Vitamin D3] 1,000 unit PO DAILY 10/24/17 Cholestyramine/Aspartame [Cholestyramine Light Packet] 4 gm PO DAILY 10/24/17 Donepezil HCl [Aricept] 5 mg PO QHS 10/24/17 Lovastatin [Altoprev] 20 mg PO QHS 10/24/17 Metoprolol Succinate [Toprol Xl] 50 mg PO BID 10/24/17 Ondansetron HCl [Zofran] 4 mg PO Q8H PRN PRN 10/24/17 Spironolactone 25 mg PO DAILY 10/24/17 Verapamil HCl [Verapamil ER] 240 mg PO DAILY 10/24/17 Primary Care Physician: Roseline Wilkins,Out of [Primary Care Provider] - Please follow up with your Primary Care Physician in: 1-2 weeks Please Follow Up With: Cardiology - your own oracle engineer When: 1-2 weeks Patient Instructions: ED Chest Pain NonCardiac Disposition: Home Minutes spent on discharge:: 35 Patient Condition:: Stable Medical Necessity - Tobacco Use Smoking Status: Former smoker Tobacco Use: Non-smoker Meaningful Use Info Meaningful Use Diagnoses (Choose all that apply): None applicable
--- NOTE | 2017-10-26 11:40 | DS.PCM_ITS ---
Discharge Date and Diagnosis - Problem List Patient Problems: Active and Suspected Problems Chest pain (Acute) Afib (Acute) Hypersomnolence (Acute) Date of Admission: 10/24/17 Date of Discharge: 10/26/17 - Primary Discharge Diagnosis Active and Suspected Problems Chest pain (Acute) - musculoskeletal Afib (Acute) with RVR Dementia Dehydration Elevated troponin Hx CHF - Secondary Discharge Diagnosis Chronic Problems HOCM (hypertrophic obstructive cardiomyopathy) (Chronic) Heart failure with preserved ejection fraction (Chronic) MVP (mitral valve prolapse) (Chronic) HTN (hypertension) (Chronic) Dementia in Alzheimer's disease (Chronic) Hospital Course and Treatment Imaging Results: RAD/Chest 1 View (Portable) IMPRESSION: Cardiomegaly. The lungs are clear. CT/Brain/Head without Contrast IMPRESSION: Normal unenhanced CT scan of the brain. Left Heart cah - hypertrophic cardiomyopathy Cardiology - Dr. Mas Operations: None Procedures: Cardiac catheterization, Stress test Summary of Care Provided: Physical exam on day of discharge: General: Resting comfortably NAD Psych: A/Ox3 normal affect HEENT: [place] AT NC Neck: Supple NT CV: RRR no m/t/r/g/h Resp: CTA Abd: [id number] Soft NT no guarding or rigidity Ext: DP2+= no edema Skin: W/D normal turgor Lymph/Heme: No active bleeding or adenopathy Neuro: CN2-12 intact Hospital course: The patient is a 67 year old F with a hx of hypertrophic cardiomyopathy, diastolic CHF, dementia, who [facility] with chest pain, nausea and vomiting. CXR was negative. CT brain was negative. She was found to have an indeterminate troponin and was taken for a stress test the following day. She had syncope and EKG changes during the stress test, so Dr. Mas took her for a left heart cath. This demonstrated no coronary disease, but confirmed prior hypertrophic cardiomyopathy. She also had AF with RVR for which she was given a dose of IV lopressor and had her verapimil and home toprol which put her back in NSR. Cardiology recommended she start eliquis for oral anticoagulation and this was ordered for her. She did not respond to zofran for nausea. Her headache and nausea resolved with tylenol and phenergan. She had no chest pain, nausea, or vomiting the next day and was [facility] back [facility] the [facility] in [facility] condition. We recommended she follow up with her medical records analyst in 1-2 weeks, and with her PCP. This patient was seen by Zuhair Anthony PA-C under the supervision of Doctor Rooney. Discharge Diet: Low fat/ Low Cholesterol, 2000 mg Sodium Diet Discharge Activity: Return to Normal Activity Home Medications: Medications to take at Discharge Acetaminophen [Tylenol] 325 mg PO Q4H PRN PRN 10/24/17 Alendronate Sodium [Fosamax] 70 mg PO Q7D@0700 10/24/17 Cholecalciferol (Vitamin D3) [Vitamin D3] 1,000 unit PO DAILY 10/24/17 Cholestyramine/Aspartame [Cholestyramine Light Packet] 4 gm PO DAILY 10/24/17 Donepezil HCl [Aricept] 5 mg PO QHS 10/24/17 Lovastatin [Altoprev] 20 mg PO QHS 10/24/17 Metoprolol Succinate [Toprol Xl] 50 mg PO BID 10/24/17 Ondansetron HCl [Zofran] 4 mg PO Q8H PRN PRN 10/24/17 Spironolactone 25 mg PO DAILY 10/24/17 Verapamil HCl [Verapamil ER] 240 mg PO DAILY 10/24/17 Primary Care Physician: Roseline Wilkins,Out of [Primary Care Provider] - Please follow up with your Primary Care Physician in: 1-2 weeks Please Follow Up With: Cardiology - your own medical records analyst When: 1-2 weeks Patient Instructions: ED Chest Pain NonCardiac Disposition: Home Minutes spent on discharge:: 35 Patient Condition:: Stable Medical Necessity - Tobacco Use Smoking Status: Former smoker Tobacco Use: Non-smoker Meaningful Use Info Meaningful Use Diagnoses (Choose all that apply): None applicable
--- NOTE | 2017-10-26 13:10 | CASEMGMT ---
Per Shawanda GARCIA, pt to be sent home on Eliquis and script already e-scribed to [facility]. Call to pharmacy and per tech, Eliquis will be a $0 co-pay for pt at this time. Shawanda GARCIA aware at this time, voices understanding. Catalina MEI CM
== END 2017-10-26 15:30 | disposition home or self-care (01) | DRG 287 ==
LOC: ED 15:21 → PCU 16:44
PROVIDERS: Emergency Provider Emergency Medicine; Visit Provider Internal Medicine
DX: I48.91 Unspecified atrial fibrillation (principal); I11.0 Hypertensive heart disease with heart failure; I50.32 Chronic diastolic (congestive) heart failure; I24.8 Other forms of acute ischemic heart disease; R07.89 Other chest pain; I42.1 Obstructive hypertrophic cardiomyopathy; G30.9 Alzheimer's disease, unspecified; F02.80 Dementia in other diseases classified elsewhere, unspecified severity, without behavioral disturbance, psychotic disturbance, mood disturbance, and anxiety; Z79.899 Other long term (current) drug therapy; Z88.6 Allergy status to analgesic agent; Z87.891 Personal history of nicotine dependence
CPT/HCPCS: 36415; 70450; 71045; 78452; 80048; 80061; 84484; 85025; 85610; 85730; 93005; 93017; 93458; 94640; 99152; 99153; 99285; A9500; C1760; J7040; A4216; C1769; J2405; J2785; Q9967